=== PATIENT | male | born 1945 | race Caucasian/White ===

== ENCOUNTER 2018-03-20 06:59 | Day surgery (SDC) | payer MEDICARE, OTHER ==
[~2018-03-20 06:59] MED LIST: ACETAMINOPHEN 1,000 MG/100 ML BTL IV ONE; CLINDAMYCIN PHOS/D5W 900MG 900 MG/50 ML BAG IVPB ONE
[2018-03-20] MEDS ORDERED: DEXAMETHASONE 4 MG/ML 1ML VIAL IVP ONE ×2 (07:00)
[2018-03-20] MEDS ORDERED: ONDANSETRON HCL IV 4 MG/2 ML VIAL IVP ONE (07:00)
[2018-03-20] MEDS ORDERED: PROPOFOL 10 MG/ML VIAL IV ONE (07:00)
[2018-03-20] MEDS ORDERED: LIDOCAINE 2% MDV (20MG/ML) 20ML VIAL IV ONE (07:00)
[2018-03-20] MEDS ORDERED: EPHEDRINE SULFATE 50 MG/ML ML IV ONE (07:00)
[2018-03-20] MEDS ORDERED: MORPHINE SULFATE PF 10MG/10ML VIAL IV ONE (07:00)
[2018-03-20] MEDS ORDERED: MIDAZOLAM HCL 2MG/2ML VIAL IV ONE (07:00)
[2018-03-20] MEDS ORDERED: BUPIVACAINE LIPOSOME/PF 133MG/10ML VIAL IV ONE (07:00)
[2018-03-20] MEDS ORDERED: METHYLPREDNISOLONE 80MG/VIAL IM ONE (07:00)
[2018-03-20] MEDS ORDERED: BUPIVACAINE 0.25% MPF 30ML VIAL IVP ONE (07:00)
[2018-03-20] MEDS ORDERED: SEVOFLURANE 250 ML INH ONE (07:00)
[2018-03-20] MEDS ORDERED: FENTANYL PF 100MCG/2ML VIAL IV ONE (07:00)
[2018-03-20] MEDS ORDERED: BUPIVACAINE 0.5% W/EPI MPF 30 ML VIAL IVP ONE (07:00)
[2018-03-20 07:27] LABS: BASO % 0.6 % (0-6); EOS % 5.4 % (0-6); GRAN % 44.4 % (47-80); HEMATOCRIT 49.9 % (42.0-52.0); HEMOGLOBIN 16.6 gm/dl (14.0-18.0); LYMPH % 36.4 % (16-45); MEAN CELL VOLUME 90.4 fl (81-97); MEAN CORPUSCULAR HEMOGLOBIN 30.1 pg (27-33); MEAN CORPUSCULAR HGB CONC 33.3 g/dl (32-36); MEAN PLATELET VOLUME 9.6 fl (7.4-10.4); MONO % 13.2 % (0-9); PLATELET COUNT 200 K/uL (130-400); RED BLOOD COUNT 5.52 M/uL (4.40-5.70); RED CELL DISTRIBUTION WIDTH 13.9 % (11.5-14.5); WHITE BLOOD COUNT W/O DIFF 6.5 K/uL (4.2-12.2)
[2018-03-20 07:42] LABS: BLOOD UREA NITROGEN 18 mg/dL (8-23); CREATININE 1.2 mg/dL (0.7-1.2); EST GLOMERULAR FILTRATION RATE > 60 mL/min; GLUCOSE,RANDOM 109 mg/dL (74-109)
--- NOTE | 2018-03-21 10:40 | Operative Note ---
DATE OF SURGERY: 03/20/2018 PREOPERATIVE DIAGNOSES: 1. Impingement right shoulder. 2. Adhesive capsulitis, right shoulder. POSTOPERATIVE DIAGNOSES: 1. Complex glenohumeral labral tear superiorly, right shoulder. 2. Diffuse synovitis, right shoulder. 3. External impingement, right shoulder, with bursitis. 4. Adhesive capsulitis, right shoulder. OPERATION: 1. Right shoulder arthroscopy with complete synovectomy with intraarticular debridement. 2. Right shoulder open acromioplasty, CA ligament resection, subacromial bursectomy. 3. Right shoulder manipulation and injection under anesthesia. Staff Surgeon: Jerome Morris MD Anesthesia: General. Preparation: Chloraprep. Individual Considerations: None. PROCEDURE: The patient was taken to the operating room, placed supine on the operating room table. He had a successful induction with general anesthetic and then he was placed in a semi-seated beach chair position. Examination under anesthesia showed adhesive capsulitis. He had resistant to motion at about 100 degrees of adduction and forward flexion. I was able to easily power this into adduction, rotation, and forward flexion. He was then prepped and draped in the usual fashion. The patient had posterior portal identified for arthroscopy. Skin was infiltrated with 0.5% Marcaine with epinephrine prior. An 18-gauge spinal needle was easily placed in the joint, and the joint was inflated with normal saline with a 60-mL syringe. A stab wound was made and a blunt-tipped trocar for the scope was easily placed in the joint. The joint was inflated with normal saline. An anterior accessory portal was then made just inferior to the intact long head of the biceps tendon in retrograde fashion with a Wissinger elizabeth, and the joint was irrigated out. The patient had rather diffuse synovitis throughout the joint. The rotator cuff had partial tears underneath. There was fairly pronounced fraying of the labrum superiorly but the long head was intact. The glenohumeral joint showed some fiber cartilage inferiorly. The head looked good. A shaver was introduced and complete synovectomy was performed. Labral tears were debrided. I now could see the subscap tendon was intact. The remainder of the labrum was intact. I had to debride out a lot of synovitis in the inferior pouch. After irrigation, portals were closed with katie. The patient had an anterior approach to the subacromial space and distal clavicle. Skin was again infiltrated with 0.5% Marcaine with epinephrine prior. Sharp dissection carried down through skin and subcutaneous tissues. Small veins were coagulated with a Bovie. An anterior deltoid interval was developed. Care was taken not to split the deltoid more than about 4 cm distal to the anterior tip of the acromion to prevent injury to the axillary nerve. Once in the subacromial space, there was a very thick adherent bursitis. The deltoid was then taken subperiosteally anteriorly. There was some residual anterior spurring of distal clavicle. It appeared to have been previously resected. I did not need to do this. I went ahead and did a complete bursectomy which was again very thickened and adherent. There was a small anterior spur of the acromion, and I did a very limited acromioplasty using an oscillating saw and smoothing it off with a rasp. I now had a good look at the rotator cuff. It looked contused but there was nothing to debride or repair. After irrigation, I placed a 22-gauge spinal needle into the joint, and then I reattached the deltoid with multiple interrupted #2 Vicryl going directly through the bony acromion. The anterior deltoid interval was closed with running #1 Vicryl. Subcu was closed with 2-0 plus Vicryl. Skin was closed with katie. I placed an 18-gauge spinal needle in the subacromial space. With an intraarticular 22-gauge needle, I injected 4 mL of 0.5% Marcaine with 40 mg of Depo-Medrol into the subacromial space. I put about 15 mL of Marcaine with 40 mg of Depo-Medrol and 10 mg of morphine. A sling and sterile dressing were applied. The patient tolerated the procedure well. Needle and sponge counts were correct. Estimated blood loss was minimal. He was taken back to recovery in good condition. There were no complications. LEATHA
== END 2018-03-20 11:35 | disposition home or self-care (01) ==
LOC: SUR 06:59
PROVIDERS: ATTEND Orthopaedic Surgery
DX: S43.431A Superior glenoid labrum lesion of right shoulder, initial encounter (principal); M75.01 Adhesive capsulitis of right shoulder; M65.811 Other synovitis and tenosynovitis, right shoulder; I10 Essential (primary) hypertension; E78.00 Pure hypercholesterolemia, unspecified; M10.9 Gout, unspecified; I25.10 Atherosclerotic heart disease of native coronary artery without angina pectoris; Z95.5 Presence of coronary angioplasty implant and graft
CPT/HCPCS: 29821; 29822; 23130; 23700; 01630; 64415; 85025; 80048; 76942; J2405; J3010; J3490; C9290; J1040